=== PATIENT | male | born 1975 | race African-American/Black ===

== ENCOUNTER 2020-10-08 12:09 | Emergency (ER) | payer MEDICARE ==
[~2020-10-08] VITALS: Ht 175.3 cm; Wt 87.0 kg
--- NOTE | 2020-10-08 12:09 | NUR ---
BIB [facility]-c/o diffuse lower abd pain and inability to urinate after smoking meth yesterday. Pt able to stand at the bedside to void into urinal. Pt able to void approximately 150mL clear yellow urine. Post void residual on bladder scan is 412mL. Discussed with Dr. Vasquez, no other orders recieved. Pt placed in gown and he is able to position himself for comfort in bed. Pt frequently standing at side of bed to attempt to void.
[2020-10-08] MEDS ORDERED: PLEASE ENTER HEIGHT AND WEIGHT MC SCH ×2 (12:30)
[2020-10-08] MEDS ORDERED: HYDROmorphone 2 MG/ML, 1ML IVPush PRN (12:30)
[2020-10-08] MEDS ORDERED: ONDANSETRON 2MG/ML, 2ML IVPush ONE (12:30)
[2020-10-08] MEDS ORDERED: SODIUM CHLORIDE FLUSH 10ML SYR IVF ONE (12:30)
[2020-10-08] MEDS ORDERED: ARIP10TA33 PO (12:46)
[2020-10-08 12:47] LABS: BASOPHILS % (AUTO) 1 % (0-1); EOSINOPHILS % (AUTO) 0 % (1-7); LYMPHOCYTES % (AUTO) 9 % (22-44); MEAN CORPUSCULAR HEMOGLOBIN 28.6 pg (27.5-34.5); MEAN CORPUSCULAR HGB CONC 34.4 g/dL (33.2-36.2); MEAN PLATELET VOLUME 9.2 fL (7.4-10.4); MONOCYTES % (AUTO) 8 % (2-9); NEUTROPHILS % (AUTO) 82 % (42-75); PLATELET COUNT 200 x10^3/uL (130-400); RED BLOOD COUNT 5.33 x10^6/uL (4.38-5.82); RED CELL DISTRIBUTION WIDTH 12.9 % (9.4-14.8)
[2020-10-08 12:57] LABS: ALANINE AMINOTRANSFERASE 39 U/L (12-78); ALBUMIN 4.6 g/dL (3.4-5.0); ANION GAP 13 mmol/L (5-15); CALCIUM 9.9 mg/dL (8.5-10.1); CHLORIDE 103 mmol/L (98-107); CREATININE 1.31 mg/dL (0.7-1.3)
[2020-10-08 12:59] LABS: ALKALINE PHOSPHATASE 76 U/L (45-117); BILIRUBIN,TOTAL 1.7 mg/dL (0.2-1.0); TOTAL PROTEIN 8.2 g/dL (6.4-8.2)
[2020-10-08 13:01] LABS: MD NO
[2020-10-08] MEDS ORDERED: HYDROmorphone 2 MG/ML, 1ML ONE (13:06)
[2020-10-08] MEDS ORDERED: ONDANSETRON 2MG/ML, 2ML ONE (13:06)
[2020-10-08 13:07] LABS: MICROSCOPIC INDICATED
--- NOTE | 2020-10-08 13:13 | NUR ---
BREAK RN: PT REPORTS 10/10 BILATERAL LOWER ABD PAIN. PT MEDICATED. VS STABLE. NO ACUTE DISTRESS NOTED. CALL LIGHT IN PLACE. WILL CONTINUE TO MONITOR WHILE PRIMARY RN IS ON BREAK.
--- NOTE | 2020-10-08 13:47 | NUR ---
Pt reports pain decreased to 5/10 after medications. Pt denies other needs.
--- NOTE | 2020-10-08 13:55 | NUR ---
Pt to CT via [facility].
[2020-10-08] MEDS ORDERED: OMNIPAQUE 350 MG/ML, 100ML BOTTLE ONE (14:00)
--- NOTE | 2020-10-08 14:07 | NUR ---
Pt back from CT, resting in bed, ABDULAZIZN.
--- NOTE | 2020-10-08 14:15 | NUR ---
Pt able to stand up at side of bed to void into urinal. Clear yellow urine emptied from urinal. Pt denies other needs.
--- NOTE | 2020-10-08 14:38 | NUR ---
Pt resting in bed, NADN, denies needs. Pt reports he was diagnosed with HTN "years ago" and does not take any medications for it. Awaiting recheck by ERP.
--- NOTE | 2020-10-08 15:34 | NUR ---
Dr. Vasquez at bedside to discuss POC with pt.
[2020-10-08 15:49] VITALS: BP 156/99
--- NOTE | 2020-10-08 15:49 | NUR ---
Pt provided clean clothes as the clothes he was wearing on arrival were soiled. Pt provided privacy to dress.
== END 2020-10-08 15:52 | disposition home or self-care (01) ==
LOC: ED 14:46
DX: R10.84 Generalized abdominal pain (principal); R30.0 Dysuria; F17.200 Nicotine dependence, unspecified, uncomplicated
CPT/HCPCS: 36415; 74177; 80053; 81001; 83690; 85025; 96374; 96375; 99285; J1170; J2405; Q9967

== ENCOUNTER 2020-10-08 22:18 | Emergency (ER) | payer MEDICARE ==
[~2020-10-08] VITALS: Ht 177.8 cm; Wt 86.0 kg
[~2020-10-08 22:18] MED LIST: ARIP10TA33 PO
[2020-10-08 22:22] VITALS: BP 118/93
--- NOTE | 2020-10-08 22:22 | NUR ---
INITIAL PT CONTACT. BIBA C/O ABD PAIN, CONSTIPATION X1 WEEK. PT DENIES ANY N/V. PT SEEN HERE EARLIER TODAY FOR SAME, WORKUP NEGATIVE. PT SITTING UPRIGHT ON [place], VSS. PT DENIES ANY NEEDS AT THIS TIME. CALL LIGHT IN REACH.
--- NOTE | 2020-10-08 22:29 | NUR ---
ERP AT BEDSIDE
[2020-10-08] MEDS ORDERED: DICYCLOMINE 20 MG TABLET PO ONE (22:30)
[2020-10-08] MEDS ORDERED: DICYCLOMINE 20 MG TABLET ONE (22:38)
--- NOTE | 2020-10-08 23:24 | NUR ---
Patient given discharge instructions and they have confirmed that they understand the instructions. Patient ambulatory with steady gait.
== END 2020-10-08 23:25 | disposition home or self-care (01) ==
LOC: ED 23:19
DX: K59.00 Constipation, unspecified (principal); R10.84 Generalized abdominal pain; F15.129 Other stimulant abuse with intoxication, unspecified; F17.200 Nicotine dependence, unspecified, uncomplicated; Z72.9 Problem related to lifestyle, unspecified
CPT/HCPCS: 99283

== ENCOUNTER 2020-10-09 07:47 | Emergency (ER) | payer MEDICARE ==
[~2020-10-09] VITALS: Ht 172.7 cm; Wt 65.0 kg
--- NOTE | 2020-10-09 07:59 | NUR ---
PT HAD LOADED FIREARM IN WAISTBAND. GIVEN TO SECURITY.
--- NOTE | 2020-10-09 08:08 | NUR ---
PT BIB [facility] FOR CO CP/PALPITATIONS. PT SEEN HERE TWICE LAST NIGHT FOR ABD PAIN. SINUS TACH. HX SCHIZOPHRENIA, NON-COMPLIANT WITH MEDS. RECENT METH USE. TECH AT BEDSIDE TO COMPLETE EKG, FOUND LOADED FIRE-ARM ON PATIENT. SECURITY CALLED TO SECURE FIRE ARM. SECURITY HELPING TO SEARCH PATIENT AND HELP CHANGE HIM TO GOWN. PT DENIES SI/HI. BP/SPO2/ECG MONITORING IN PLACE.
[2020-10-09] MEDS ORDERED: LORazepam 2 MG/ML, 1ML ONE (08:14)
--- NOTE | 2020-10-09 08:22 | NUR ---
PT CALM AND COOPERATIVE. MEDICATED PER EMAR
[2020-10-09] MEDS ORDERED: LORazepam 2 MG/ML, 1ML IVPush ONE (08:30)
[2020-10-09] MEDS ORDERED: SODIUM CHLORIDE 0.9% 1,000ML IVBOLUS ONE (08:30)
[2020-10-09] MEDS ORDERED: SODIUM CHLORIDE FLUSH 10ML SYR IVF ONE (08:30)
--- NOTE | 2020-10-09 09:06 | NUR ---
PT REPORTS IMPROVED S/S WITH ATIVAN. IVF CONTINUES TO INFUSE, SLOWLY. IV POSITIONAL. UDS COLLECTED AND SENT TO LAB
[2020-10-09 09:08] LABS: ALANINE AMINOTRANSFERASE 39 U/L (12-78); ALBUMIN 4.4 g/dL (3.4-5.0); ANION GAP 11 mmol/L (5-15); CALCIUM 9.3 mg/dL (8.5-10.1); CHLORIDE 104 mmol/L (98-107); CREATININE 1.37 mg/dL (0.7-1.3)
[2020-10-09 09:11] LABS: BASOPHILS % (AUTO) 1 % (0-1); EOSINOPHILS % (AUTO) 1 % (1-7); LYMPHOCYTES % (AUTO) 17 % (22-44); MD NO; MEAN CORPUSCULAR HEMOGLOBIN 28.8 pg (27.5-34.5); MEAN CORPUSCULAR HGB CONC 34.9 g/dL (33.2-36.2); MEAN PLATELET VOLUME 9.4 fL (7.4-10.4); MONOCYTES % (AUTO) 10 % (2-9); NEUTROPHILS % (AUTO) 71 % (42-75); PLATELET COUNT 170 x10^3/uL (130-400); RED BLOOD COUNT 5.33 x10^6/uL (4.38-5.82); RED CELL DISTRIBUTION WIDTH 12.6 % (9.4-14.8); SALICYLATE LEVEL < 1.7 mg/dL (2.8-20.0)
[2020-10-09 09:17] LABS: ALKALINE PHOSPHATASE 69 U/L (45-117); BILIRUBIN,TOTAL 1.5 mg/dL (0.2-1.0); TOTAL PROTEIN 7.6 g/dL (6.4-8.2)
[2020-10-09 09:29] LABS: AMPHETAMINE SCREEN, URINE Positive (Negative); BARBITURATE SCREEN, URINE Negative (Negative); BENZODIAZEPINE SCREEN, URINE Negative (Negative); CANNABINOID SCREEN, URINE Negative (Negative); COCAINE SCREEN, URINE Positive (Negative); METHADONE SCREEN, URINE Negative (Negative); OPIATE SCREEN, URINE Negative (Negative)
[2020-10-09 09:35] VITALS: BP 141/92
[2020-10-09 10:00] LABS: TROPONIN I 0.026 ng/mL (0.000-0.045)
--- NOTE | 2020-10-09 10:00 | NUR ---
PT SELF DC'D IV AND IS UP TO DRESS SELF. POC IS DC.
--- NOTE | 2020-10-09 10:20 | NUR ---
DC EDUCATION PROVIDED, PT DEMONSTRATES UNDERSTANDING. PT AMBULATED STEADILY TO DC WITH RN. PT INSTRUCTED WHERE TO FIND SECURITY DESK
== END 2020-10-09 10:22 | disposition home or self-care (01) ==
LOC: ED 08:35
DX: R00.2 Palpitations (principal); R00.0 Tachycardia, unspecified; Z59.0 Homelessness; F15.10 Other stimulant abuse, uncomplicated; R06.89 Other abnormalities of breathing; Z91.19 Patient's noncompliance with other medical treatment and regimen; F14.10 Cocaine abuse, uncomplicated
CPT/HCPCS: 36415; 71045; 80053; 80299; 80307; 80320; 80329; 83735; 84443; 84484; 85025; 93005; 96361; 96374; 99285; J2060; J7030; G0480

== ENCOUNTER 2020-10-10 12:08 | Emergency (ER) | payer MEDICARE ==
[~2020-10-10] VITALS: Ht 167.6 cm; Wt 86.5 kg
--- NOTE | 2020-10-10 12:33 | NUR ---
PT RICKI YORK WITH THREE VISITS TO THIS ER SINCE YESTERDAY FOR VARYING REASONS INCLUDING CHEST PAIN AND ABDOMINAL PAIN. 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 PT REPORTS HE PLANS TO JUMP OFF OF BUILDING AND THE DRUG CARTEL WAS AFTER HIM. PT DENIES ANY OTHER SYMPTOMS TODAY. LABS COLLECTED AND MEAL ORDERED FOR PT. PT CALM AND COOPERATIVE. SITTER REQUESTED OF CHARGE NURSE.
--- NOTE | 2020-10-10 12:36 | NUR ---
ALL BELONGINGS OF PT REMOVED AND PLACED IN SECURITY LOCKER. PT HAD SMALL SUITCASE, SMALL BAG, CLOTHES, JACKET, AND SHOES. ALL BELONGINGS LABELED AND NUMBERED.
[2020-10-10 12:40] LABS: BASOPHILS % (AUTO) 1 % (0-1); EOSINOPHILS % (AUTO) 3 % (1-7); LYMPHOCYTES % (AUTO) 23 % (22-44); MEAN CORPUSCULAR HEMOGLOBIN 28.8 pg (27.5-34.5); MEAN CORPUSCULAR HGB CONC 34.4 g/dL (33.2-36.2); MEAN PLATELET VOLUME 9.3 fL (7.4-10.4); MONOCYTES % (AUTO) 8 % (2-9); NEUTROPHILS % (AUTO) 65 % (42-75); PLATELET COUNT 200 x10^3/uL (130-400); RED BLOOD COUNT 5.42 x10^6/uL (4.38-5.82); RED CELL DISTRIBUTION WIDTH 12.8 % (9.4-14.8)
[2020-10-10 12:41] LABS: MD NO
--- NOTE | 2020-10-10 12:46 | NUR ---
assumed care of pt. report toney Huston RN. pt here for SI with plan. pt resting on gurney in no appaent distress. calm and cooperative. no family at bedside legal hold currently in place rooms secure. sitter present for safety
[2020-10-10 12:49] LABS: ALBUMIN 4.3 g/dL (3.4-5.0); ANION GAP 12 mmol/L (5-15); CALCIUM 9.1 mg/dL (8.5-10.1); CHLORIDE 103 mmol/L (98-107); CREATININE 1.33 mg/dL (0.7-1.3)
[2020-10-10 12:50] LABS: SALICYLATE LEVEL < 1.7 mg/dL (2.8-20.0)
[2020-10-10 13:05] LABS: AMPHETAMINE SCREEN, URINE Positive (Negative); BARBITURATE SCREEN, URINE Negative (Negative); BENZODIAZEPINE SCREEN, URINE Negative (Negative); CANNABINOID SCREEN, URINE Negative (Negative); COCAINE SCREEN, URINE Positive (Negative); METHADONE SCREEN, URINE Negative (Negative); OPIATE SCREEN, URINE Negative (Negative)
--- NOTE | 2020-10-10 13:14 | NUR ---
meal tray delivered
--- NOTE | 2020-10-10 13:23 | NUR ---
Wilder psych PROP MAKER has been to bedside for eval
--- NOTE | 2020-10-10 13:51 | NUR ---
per report, when pt was here yesterday he was carrying a firearm that was confiscated by security and then returned upon D/C. security has been to bedside to check for weapons and has not located any on pt person or in his belongings pt reports that upon D/C yesterday, he was picked up by his sister an he gave it to her
--- NOTE | 2020-10-10 13:58 | NUR ---
Wilder guzman APRN back to bedside for further evalution room secure. sitter present for safety
[2020-10-10] MEDS ORDERED: ARIPIPRAZOLE 10 MG TABLET PO SCH (14:30)
[2020-10-10] MEDS ORDERED: ARIPIPRAZOLE 5 MG TABLET ONE (14:32)
[2020-10-10 15:12] VITALS: BP 120/72
== END 2020-10-10 15:42 | disposition home or self-care (01) ==
LOC: ED 15:20
DX: F20.89 Other schizophrenia (principal); F14.10 Cocaine abuse, uncomplicated; F22 Delusional disorders; Z72.9 Problem related to lifestyle, unspecified; Z59.0 Homelessness
CPT/HCPCS: 36415; 80048; 80299; 80307; 80320; 80329; 82040; 85025; 99285; G0480